=== PATIENT | female | born 1950 | race Caucasian/White ===

== ENCOUNTER 2017-07-23 05:58 | Day surgery (SDC) | payer OTHER ==
[2017-07-21 15:22] LABS: Urine Appearance CLEAR; Urine Bilirubin NEGATIVE (NEG); Urine Blood NEGATIVE (NEG); Urine Color YELLOW; Urine Glucose NEGATIVE (NEG); Urine Protein NEGATIVE (NEG); Urine Specific Gravity <=1.005 (1.005-1.030); Urine Urobilinogen 0.2 mg/dL (0.2-1.0)
[2017-07-21 15:37] LABS: Urine Microscopic Reflex NO UMIC
[2017-07-23] MEDS ORDERED: Ringers Lactate 1,000 ML IV ONE (06:07)
[2017-07-23] MEDS ORDERED: CIPROFLOXACIN HCL 500 MG TAB ONE (06:08)
[2017-07-23] MEDS ORDERED: FENTANYL CITR 100 MCG/2 ML ONE (07:00)
[2017-07-23] MEDS ORDERED: PROPOFOL 200 MG/20 ML VIAL IV ONE (07:00)
[2017-07-23] MEDS ORDERED: MIDAZOLAM HCL 2 MG/2 ML INJ ONE (07:00)
[2017-07-23] MEDS ORDERED: LIDOCAINE 2% MPF 5 ML VIAL ONE (07:00)
[2017-07-23] MEDS ORDERED: NS 0.9% VIAL 20 ML ONE (07:05)
[2017-07-23] MEDS ORDERED: BOTU TOX TYPE A 100 UNIT/VIAL ID ONE (07:06)
[2017-07-23] MEDS ORDERED: NS 0.9% VIAL 10 ML ONE (07:11)
[2017-07-23] MEDS: BOTU TOX TYPE A 100 UNIT/VIAL ID ONE ×2 (07:42→07:48)
[2017-07-23] MEDS ORDERED: GLYCOPYRROLATE 0.2 MG/ML SYR ONE (07:47)
[2017-07-23] MEDS ORDERED: EPHEDRINE SULF 50 MG/ML SYR ONE (07:51)
[2017-07-23 11:38] VITALS: BP 122/78; TEMP 98; O2SAT 97
--- NOTE | 2017-07-23 20:12 | OP ---
Date of Procedure: 07/23/2017 Surgeon: Esmer Feliz MD Preoperative Diagnosis: Refractory overactive bladder. Postoperative Diagnosis: Refractory overactive bladder. Procedure Performed: Cystoscopy and injection of Botox. Anesthesia: General with LMA. Specimens: No specimens Complications: No complications. Drains: No drains. Condition: Stable. Findings: The patient's POP-Q was -2, -2, -6, 3 cm, moderate and 6, -3, -3. On cystoscopy no eviden ce of any foreign body, tumor, diverticula, or ulcerations. Appeared to be normal. Botox given in 3 rows 100 units injected with Laborie needle with injection up to 4 mm. After patient was evaluated for overactive bladder, she was treated with anticholinergic and a beta 3 agonist. She failed both. Despite the prolapse surgery, she had not improved with her overactive b ladder symptoms, which are severe and impairing her lifestyle. So, she was counseled on her alternat ana of safer neuromodulation, Botox and how they were equivalent, proceeded with consenting for Boto x injections by her choice. Description Of Procedure: She was consented and brought to the OR. Cipro 500 mg was given. She was taken back to OR and placed in a supine fashion on the operating table. After general anesthesia wa s given, she was placed in a dorsal lithotomy position using Ian stirrups. Vaginal prep was done a s usual and draped in a sterile fashion. Then, cystoscopy was performed with a 22-Filipino sheath and 30-degree lens and normal saline for distention medium. The bladder was filled about 250 cc. Still there was optimal distention without overdistention. Then, after identifying both the ureteric orifi kendal, the area above the trigone was identified for injection. The Laborie needle was used to inject after going into the bladder muscle, then pulling it back slightly maybe about 2-3 mm step. Injectio ns were done 0.5 cc after the reconstitution of the Botox in [address] and rows of 7, 7, an d 6 and then 2 leaving at least a cm space in between the rows. Once all this was done, there was no bleeding. The injections appeared to be optimal into the muscle. Bladder was drained with 22-Frenc h sheath after the scope was removed along with the needle. Then, she was recovered from anesthesia and taken to the PACU in stable condition. EBL minimal. The patient's condition, stable. She will follow up with me in 1 week. JENNIFER Voice ID: [id number] Report ID: [id number]
== END 2017-07-23 09:29 | disposition home or self-care (01) ==
LOC: OR 05:58
PROVIDERS: ATTEND Obstetrics & Gynecology
PROC: 3E0K8GC Introduction of Other Therapeutic Substance into Genitourinary Tract, Via Natural or Artificial Opening Endoscopic (ICD-10-PCS; principal; 2017-07-23 07:30)
DX: N32.81 Overactive bladder (principal)
CPT/HCPCS: 52287; 81003; J0585; J2250; J3010

== ENCOUNTER 2018-01-26 06:51 | Day surgery (SDC) | payer OTHER ==
[2017-12-30 16:39] LABS: Urine Appearance CLEAR; Urine Bilirubin NEGATIVE (NEG); Urine Blood NEGATIVE (NEG); Urine Color YELLOW; Urine Glucose NEGATIVE (NEG); Urine Protein NEGATIVE (NEG); Urine Urobilinogen 0.2 mg/dL (0.2-1.0); Urine pH 6.5 (5.0-7.0)
[2017-12-30 16:41] LABS: Urine Microscopic Reflex ORDER UMIC
[2017-12-30 16:50] LABS: Urine Bacteria 20-50 /HPF (<20); Urine Culture Reflex Order REFLEXED; Urine RBC <5 /HPF (NONE SEEN)
[2018-01-26] MEDS ORDERED: Ringers Lactate 1,000 ML IV ONE (07:17)
[2018-01-26 07:23] VITALS: O2SAT 100
[2018-01-26] MEDS ORDERED: BOTU TOX TYPE A 100 UNIT/VIAL ID ONE (07:32)
[2018-01-26] MEDS ORDERED: NS 0.9% VIAL 0 ML ONE (07:45)
[2018-01-26] MEDS ORDERED: LIDOCAINE 2% MPF 5 ML VIAL ONE (08:04)
[2018-01-26] MEDS ORDERED: PROPOFOL 200 MG/20 ML VIAL IV ONE ×2 (08:04→09:32)
[2018-01-26] MEDS ORDERED: MIDAZOLAM HCL 2 MG/2 ML INJ ONE (08:04)
[2018-01-26] MEDS ORDERED: NS 0.9% VIAL 20 ML ONE (08:37)
[2018-01-26 10:46] VITALS: TEMP 96.4
[2018-01-26 10:47] VITALS: BP 114/57
--- NOTE | 2018-01-26 13:30 | OP ---
Date of Procedure: 01/26/2018 Surgeon: Esmer Feliz MD Preoperative Diagnosis: Refractory overactive bladder. Postoperative Diagnosis: Refractory overactive bladder. Procedure Performed: Cystoscopy with Botox injections. Anesthesia: MAC. Specimens: None. Complications: None. Drains: None. Condition: The patient is stable. Indications For Procedure: The patient is a 67-year-old, who underwent prolapse surgery, successfull y reduced prolapse, well-supported perineum. Stress incontinence completely resolved. However, she had overactive bladder that was refractory to medical treatment. So, she received an injection of Ben tox 6 months ago and did very well with it. She had urinary retention immediately after, which resol yong spontaneously, and she was able to straight cath without any problems. She had 1 bladder infecti on in the last 6 months' duration, which was most recently, so she wanted to proceed with another Bot ox injection. She was consented and brought to the OR. She was given Macrobid and prescription to g o home with. She just received antibiotics and her test of cure for urine was negative before the pr ocedure. Procedure In Detail: She was taken back to the OR. She was placed in a supine fashion on the operat ing table. After MAC was given, she was placed in a dorsal lithotomy position. Vulva, vagina, and p eriurethral area were all prepped with Betadine. Cystoscopy was performed with a 17-Peruvian sheath, 3 0-degree lens and normal saline for distention medium. Using a Cook needle and 100 units of Botox, w hich were diluted in 10 cc of normal saline, 21 injections were given including the flushing out with 2 extra, 0.5 cc was injected at each site starting about a centimeter above the level of the trigone . Both ureteric orifices were well visualized, strong jets of urine. There were trabeculations in t he bladder and injections were performed at least 3-4 mm depth with the needle. Three rows were give n, 3 salines, and then the flushing was on the top with 2 extra injections using a saline flush. The patient tolerated the procedure well. There was no bleeding. The bladder was irrigated and drained . Instrument and sponge counts were correct at the end of the case. The patient was recovered from anesthesia in the OR and taken to PACU in stable condition. SK/JOYCE Voice ID: [id number] Report ID: [id number]
== END 2018-01-26 10:43 | disposition home or self-care (01) ==
LOC: OR 06:51
PROVIDERS: ATTEND Obstetrics & Gynecology
PROC: 3E0K8GC Introduction of Other Therapeutic Substance into Genitourinary Tract, Via Natural or Artificial Opening Endoscopic (ICD-10-PCS; principal; 2018-01-26 08:30)
DX: N32.81 Overactive bladder (principal); I10 Essential (primary) hypertension; E03.9 Hypothyroidism, unspecified; H40.9 Unspecified glaucoma; L40.9 Psoriasis, unspecified
CPT/HCPCS: 51715; 87077; 87086; 87088; 87186; J0585; J2250; 81003; 81015; J2704

== ENCOUNTER 2018-08-31 06:55 | Day surgery (SDC) | payer OTHER ==
--- OUTSIDE RECORDS SUMMARY | 2018-08-31 06:59 | XMS REPORT ---
:1950 [facility] Address [address] [place] [address] Dr. Espinoza [address] [place] [id number] Care Team Providers Name Role Phone Unavailable Unavailable Unavailable Problems This patient has no known problems. Allergies, Adverse Reactions, Alerts This patient has no known allergies or adverse reactions. Medications This patient has no known medications.
[2018-08-31] MEDS ORDERED: NS 0.9% VIAL 20 ML ONE (07:18)
[2018-08-31] MEDS ORDERED: MIDAZOLAM HCL 2 MG/2 ML INJ ONE (07:31)
[2018-08-31] MEDS ORDERED: LIDOCAINE 1% MPF 5 ML VIAL ONE (07:31)
[2018-08-31] MEDS ORDERED: FENTANYL CITR 100 MCG/2 ML ONE (07:31)
[2018-08-31] MEDS ORDERED: PROPOFOL 200 MG/20 ML VIAL IV ONE (07:31)
[2018-08-31] MEDS ORDERED: NA CHLORIDE 0.9% 1,000 ML ONE (07:42)
[2018-08-31] MEDS ORDERED: Ringers Lactate 1,000 ML IV ONE (07:45)
[2018-08-31] MEDS: BOTU TOX TYPE A 100 UNIT/VIAL ID ONE ×4 (08:05→08:58)
[2018-08-31] MEDS ORDERED: NS 0.9% VIAL 10 ML ONE ×2 (08:47→09:12)
[2018-08-31] MEDS ORDERED: CEFAZOLIN/SWI 1gm 1 GM/10 ML SYR ONE (08:51)
[2018-08-31] MEDS ORDERED: ONDANSETRON 4 MG/2 ML VIAL ONE (08:57)
[2018-08-31] MEDS ORDERED: KETOROLAC 30 MG/ML INJ ONE (08:57)
[2018-08-31] MEDS ORDERED: EPHEDRINE SULF 50 MG/ML VIAL ONE (09:12)
[2018-08-31 09:54] VITALS: O2SAT 98
[2018-08-31 10:14] VITALS: BP 139/59; TEMP 97.5
--- NOTE | 2018-08-31 13:16 | OP ---
Date of Procedure: 08/31/2018 Surgeon: Esmer Feliz MD Preoperative Diagnosis: Refractory overactive bladder. Repeat Botox injection. Anesthesia: The patient had general anesthesia. Specimens: None. Complications: None. Drains: None. Condition: Stable. Procedure Performed: Cystoscopy with Botox injection of 150 units. The patient is a 67-year-old with refractory overactive bladder, has had 2 prior injections[address] The fir st 1 with 100 units that did not last more than 3-1/2 months and dose increased to 150 units and her affect lasted to an optimal level for about 5-1/2 months and then recurrence of symptoms and the last 1 month gotten to the point that she needed an injection again in 6 months. A 150 units of Botox wa s discussed at this time and she was brought to the OR. Description Of Procedure: After informed consent was verified, she was taken back to the OR. Ancef 1 g was given preop. SCDs were placed. The patient was placed in a supine fashion on the operating table, general anesthesia given. She was placed in a dorsal lithotomy position using Ian stirrups, prep x3 with Betadine was done. The vulva, vagina, and perineum were draped appropriately then went on to use a 21-Egyptian sheath with a 30-degree lens, normal saline for distention. Cystoscopy was pe rformed. Bladder unremarkable, significant for trabeculations. No other abnormal findings. A 150 u nits of Botox was taken after reconstituting the two 100 bottles with 10 cc of normal saline in each 15 cc was loaded in 2 syringes, 10 in 1 and 5 in 1. Then the Laborie needle was used to insert throu gh the cystoscope and 15 1 mL injections were given which had 10 units of Botox in each site, 8 injec tions in the first row, 7 injections in the second row, then 2 flushes in the trigonal area to get th e rest of the Botox out of the catheter cannula. Irrigation and drainage were performed, very minima l bleeding. No clots were noted. The bladder was drained. The entire bladder was well visualized a nd unremarkable. The patient was recovered from anesthesia. Instrument, needle, and sponge counts w ere correct at the case. The patient tolerated the procedure well. She will follow up with me in 5 days for a postvoid trial and then 10 days for postop visit and PVR again. Macrobid 100 mg daily has been given for this patient for a week. RASHAAD/JOYCE Voice ID: [id number] Report ID: [id number]
== END 2018-08-31 10:18 | disposition home or self-care (01) ==
LOC: OR 06:55
PROVIDERS: ATTEND Obstetrics & Gynecology
PROC: 3E0K8GC Introduction of Other Therapeutic Substance into Genitourinary Tract, Via Natural or Artificial Opening Endoscopic (ICD-10-PCS; principal; 2018-08-31 08:30)
DX: N32.81 Overactive bladder (principal); N39.41 Urge incontinence; E03.9 Hypothyroidism, unspecified; I10 Essential (primary) hypertension; Z79.899 Other long term (current) drug therapy
CPT/HCPCS: 52287; J2704; J0585 ×2; J2250; J3010; J0690; J7030; J2405

== ENCOUNTER 2019-03-15 10:17 | Day surgery (SDC) | payer OTHER ==
--- OUTSIDE RECORDS SUMMARY | 2019-03-15 10:20 | XMS REPORT ---
:1950 [facility] Address [address] [place] [address] Dr. Espinoza [address] [place] [id number] Care Team Providers Name Role Phone Unavailable Unavailable Unavailable Problems This patient has no known problems. Allergies, Adverse Reactions, Alerts This patient has no known allergies or adverse reactions. Medications This patient has no known medications.
[2019-03-15] MEDS ORDERED: Ringers Lactate 1,000 ML IV ONE (10:29)
[2019-03-15] MEDS ORDERED: propofoL 200 MG/20 ML VIAL IV ONE (11:12)
[2019-03-15] MEDS ORDERED: FENTANYL CITR 100 MCG/2 ML ONE (11:12)
[2019-03-15] MEDS ORDERED: LIDOCAINE 1% MPF 5 ML VIAL ONE (11:13)
[2019-03-15] MEDS ORDERED: BOTU TOX TYPE A 100 UNIT/VIAL ID ONE (11:25)
[2019-03-15] MEDS ORDERED: NS 0.9% VIAL 30 ML ONE (11:30)
[2019-03-15] MEDS ORDERED: NA CHLORIDE 0.9% 1,000 ML ONE (11:30)
[2019-03-15] MEDS ORDERED: LIDOCAINE 1% W/EPI 1:100,000 MDV 20 ML VIAL ONE (11:30)
[2019-03-15] MEDS ORDERED: MIDAZOLAM HCL 2 MG/2 ML INJ ONE (11:51)
[2019-03-15] MEDS: CEFAZOLIN/SWI 1gm 1 GM/10 ML SYR ONE ×2 (11:55→12:14)
[2019-03-15] MEDS ORDERED: Phenylephrine HCl 10 MG/ML 1 ML VIAL ONE (12:07)
[2019-03-15] MEDS ORDERED: NS 0.9% VIAL 10 ML ONE ×2 (12:08→12:09)
[2019-03-15] MEDS ORDERED: GLYCOPYRROLATE 0.2 MG/ML SYR ONE (12:11)
[2019-03-15] MEDS ORDERED: EPHEDRINE SULF 50 MG/ML VIAL ONE (12:24)
[2019-03-15 12:53] VITALS: O2SAT 99
[2019-03-15 14:10] VITALS: BP 146/65; TEMP 97.1
--- NOTE | 2019-03-16 04:32 | OP ---
Date of Procedure: 03/15/2019 Surgeon: Esmer Feliz MD Preoperative Diagnoses: 1.Refractory overactive bladder. 2.Prior injections of Botox declined having sacral neuromodulation, here for cystoscopy with Botox. Postoperative Diagnoses: 1.Refractory overactive bladder. 2.Prior injections of Botox declined having sacral neuromodulation, here for cystoscopy with Botox. Procedure Performed: Cystourethroscopy and the Botox injection 150 units. Anesthesia: General with LMA. Specimens: No specimens. Complications: No complications. Drains: No drains. Condition: Stable. Findings: Bladder unremarkable same as before and no new findings. Description Of Procedure: After informed consent was verified, the patient was taken back to OR, 1 g of Ancef was given intravenously. Then, after she was placed in a supine position on the operating table. She was placed in dorsal lithotomy position after anesthesia. Prep x3 with Betadine was done on the vulva, vagina, and perineum. Then this was draped. A 17-German sheath, 30-degree lens, and normal saline were used for cystoscopy. After entering the bladder, and then filling her with about 250 mL of normal saline. Then, both ureteric orifices were well visualized. There were strong jets of urine from both. Then the Botox was diluted 5 units in each 0.5 mL, so 15 mL of the Botox was penny wn for 150 units. Then 30 injections were given multiple sites on the bladder starting about 1 cm ab ove the level of the trigone and staying within the range within the bladder pillars. There were trixie e injections however given outside of it as well pretty close to the lateral aspect and not as quite on the dome, but pretty close to it. There was 1 site right above the level of the trigone that was bleeding, which eventually had significantly slowed down and there was good hemostasis after irrigati on of the bladder and drainage. It was refilled 2 times to watch for this and the bleeding was trivi al. All the instruments were removed. Instruments, needle, and sponge counts were done and were correct at the end of the case. The patient tolerated the procedure well, she was recovered from anesthesia and taken to PACU in stable condition. She has a followup in 5 days for a postvoid #1 and then postv oid #2 on postop day 10 when she will see me back in the office. JENNIFER Voice ID: [id number] Report ID: [id number]
== END 2019-03-15 13:45 | disposition home or self-care (01) ==
LOC: OR 10:17
PROVIDERS: ATTEND Obstetrics & Gynecology
PROC: 3E0K8GC Introduction of Other Therapeutic Substance into Genitourinary Tract, Via Natural or Artificial Opening Endoscopic (ICD-10-PCS; principal; 2019-03-15 11:30)
DX: N32.81 Overactive bladder (principal); E03.9 Hypothyroidism, unspecified; L40.9 Psoriasis, unspecified; H40.9 Unspecified glaucoma
CPT/HCPCS: 82947; 52287; J2704; J2370; J0585; J2250; J3010; J0690; J7120; J7030